=== PATIENT | female | born 1965 | race Caucasian/White ===

== ENCOUNTER 2019-04-12 18:37 | Emergency (ER) | payer OTHER ==
[~2019-04-12] VITALS: Ht 167.6 cm; Wt 61.2 kg
[2019-04-12 19:10] VITALS: BP 136/82
--- NOTE | 2019-04-12 19:10 | NUR ---
ED Nurse Note: Pt walked in to ED from home c/o runny nose, muscular cp when coughing since today. Afebrile. Not in any distress. 96% RA. VSS.
[2019-04-12 21:08] VITALS: BP 136/82
--- NOTE | 2019-04-12 21:08 | NUR ---
ED Nurse Note: Pt left without being seen by the ERMD. ERMD and CN notified.
--- NOTE | 2019-04-12 21:42 | Emergency Room Report ---
History of Present Illness General Chief Complaint: Flu Like Symptoms Source: Patient Present Illness HPI This patient left prior to evaluation by medical provider. Allergies: Coded Allergies: CODEINE (Verified Allergy, Unknown, 04/12/19) PENICILLINS (Verified Allergy, Unknown, 04/12/19) Nursing Documentation-PMH Hx Hypertension: Yes Hx COPD: Yes Physical Exam Vital Signs Date Time Temp Pulse Resp B/P (MAP) Pulse Ox O2 Delivery O2 Flow Rate FiO2 04/12/19 19:03 98.2 97 19 136/82 (100) 96 Room Air Medical Decision Making PA Attestation Dr. Gallardo is my supervising Physician whom patient management has been discussed with. ER Course This patient left prior to evaluation by medical provider. Last Vital Signs Date Time Temp Pulse Resp B/P (MAP) Pulse Ox O2 Delivery O2 Flow Rate FiO2 04/12/19 19:03 98.2 97 19 136/82 (100) 96 Room Air Disposition: LEFT W/OUT BEING SEEN Condition: Unknown Keri Atkins Apr 12, 2019 21:42
== END 2019-04-12 21:08 | disposition left against medical advice (07) ==
LOC: EMR 21:08
DX: Z53.21 Procedure and treatment not carried out due to patient leaving prior to being seen by health care provider (principal); Z88.0 Allergy status to penicillin; Z88.6 Allergy status to analgesic agent; J44.9 Chronic obstructive pulmonary disease, unspecified; I10 Essential (primary) hypertension